=== PATIENT | female | born 1960 | race Asian ===

== ENCOUNTER 2018-03-19 12:32 | Day surgery (SDC) | payer OTHER ==
[2018-03-19] MEDS: NS 1,000 ML IV (07:00)
[2018-03-19] MEDS ORDERED: PROPOFOL 200 MG/20 ML VIAL As Ordered (13:34)
[2018-03-19] MEDS ORDERED: LIDOCAINE 2% INJ 100 MG/5 ML SDV (FOR ANES.) As Ordered (13:34)
[2018-03-19] MEDS ORDERED: fentaNYL 100 MCG/2 ML INJECTION (J3010) As Ordered (14:25)
== END 2018-03-19 15:11 | disposition home or self-care (01) ==
LOC: M OPP 12:32
DX: R93.3 Abnormal findings on diagnostic imaging of other parts of digestive tract (principal); R13.12 Dysphagia, oropharyngeal phase; R00.2 Palpitations; I95.9 Hypotension, unspecified; K21.9 Gastro-esophageal reflux disease without esophagitis; R12 Heartburn; Z78.0 Asymptomatic menopausal state; R06.83 Snoring; M19.90 Unspecified osteoarthritis, unspecified site; Z79.899 Other long term (current) drug therapy; Z91.018 Allergy to other foods
CPT/HCPCS: 43450

== ENCOUNTER → 2019-09-10 | Outpatient (CLI) | payer OTHER ==
[~2019-09-10] MED LIST: ISOVUE-370 76% 100ML VIAL (Q9967) As Ordered ONE; MOBI4TAB PO; VITA50005 PO
== END ==
LOC: M RAD 14:54
PROVIDERS: ATTEND Otolaryngology
DX: R22.1 Localized swelling, mass and lump, neck (principal)

== ENCOUNTER → 2019-10-29 | Outpatient (CLI) | payer OTHER ==
[~2019-10-29] MED LIST changes: -ISOVUE-370 76% 100ML VIAL (Q9967) As Ordered ONE; +PROHANCE 279.3MG/ML 15ML VIAL As Ordered ONE
--- NOTE | 2019-10-29 17:50 | REP ---
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 Swelling, mass, and lump in the neck. Comparison is made with soft tissue neck CT study, September 10, 2019. Comparison is made with MRI brain imaging from May 03, 2019 and July 04, 2017. MRI FINDINGS: There is a fairly well-circumscribed lobulated mass lesion involving the left posterior soft palate and the left parapharyngeal space. The lesion shows essentially isointensity with skeletal muscle on T1-weighted scans and T2 hyperintensity. There are multiple foci of rounded areas of signal loss on T1- and T2-weighted scans corresponding to the calcifications seen on CT study. These are compatible with phleboliths. There is a 13 mm lateral extension from the soft palate into the left retromolar soft tissues at the level of the posterior margin of the maxillary alveolus. Apart from this lateral thin extension, the lesion measures 4.8 cm anterior to posterior by 2.1 cm in greatest medial to lateral dimension by 3.9 cm in greatest craniocaudal span. The lesion demonstrates fairly prominent, although incomplete contrast enhancement. It is visible in retrospect and is felt to be unchanged when compared with the brain MRI images including July 04, 2017. There is no evidence of adenopathy. No bony destructive change is seen. The skull base soft tissues are unremarkable. No intraorbital abnormality is seen. Parotid and submandibular glands are normal and symmetric. Thyroid lobes are unremarkable. IMPRESSION: There is a 4.8 cm enhancing mass in the left soft palate and left parapharyngeal soft tissues. This is a chronic vascular finding, unchanged since July 04, 2017. It contains phleboliths. 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 Electronically Signed by Conrad De La Rosa MD 11/01/2019 09:16 A
== END ==
LOC: M RAD 08:58
PROVIDERS: ATTEND Otolaryngology
DX: R22.1 Localized swelling, mass and lump, neck (principal)
CPT/HCPCS: 70543; A9576

== ENCOUNTER → 2019-11-24 | Outpatient (CLI) | payer OTHER ==
[~2019-11-24] MED LIST changes: -PROHANCE 279.3MG/ML 15ML VIAL As Ordered ONE
== END ==
LOC: M LABSMTC 10:43
PROVIDERS: ATTEND Pediatrics
DX: Z03.818 Encounter for observation for suspected exposure to other biological agents ruled out (principal); Z11.59 Encounter for screening for other viral diseases